=== PATIENT | female | born 1965 | race Caucasian/White ===

== ENCOUNTER 2019-09-05 06:05 | Day surgery (SDC) | payer MEDICARE, MEDICAID ==
[~2019-09-05] VITALS: Ht 157.5 cm; Wt 55.5 kg
[2019-09-05 06:31] VITALS: BP 148/87; PULSE 67; TEMP 97.8
[2019-09-05] MEDS ORDERED: PRINIVIL20 MG PO (06:52)
[2019-09-05] MEDS ORDERED: TIROSINT75 MC1 PO (06:53)
[2019-09-05] MEDS ORDERED: LEXAPRO 10MG10 MG PO (06:54)
[2019-09-05] MEDS ORDERED: LAMICTAL ODT50 MG PO (06:54)
[2019-09-05] MEDS ORDERED: PEPCID 20MG TAB20 MG PO (06:55)
[2019-09-05 07:40] VITALS: BP 117/67; PULSE 97; TEMP 98.3
--- NOTE | 2019-09-05 07:40 | NUR ---
Patient arrives back to [facility] [place] drowsy, denies pain or nausea. Patient ambulates from cart to chair with standby assist and without any complications. Patient monitor applied, vitals stable. Patient's spouse brought to bedside and patient given water, denies wanting any food at this time.
[2019-09-05 07:55] VITALS: BP 125/76; PULSE 98
--- NOTE | 2019-09-05 08:05 | NUR ---
Patient waking up well. Denies pain or nausea. Denies wanting any food at this time. Vitals stable. Waiting for Dr Garcia to see patient to go over results.
[2019-09-05] MEDS ORDERED: PROTONIX 40MG T40 MG PO (08:09)
[2019-09-05 08:10] VITALS: BP 121/76; PULSE 74
--- NOTE | 2019-09-05 08:25 | NUR ---
Dismissal instructions gone over with patient and patient's spouse at this time. Both verbalize understanding and all questions answered.
--- NOTE | 2019-09-05 08:45 | NUR ---
Patient discharged to private vehicle to patient enterance via wheelchair without any complications. Patient and spouse leave thanking staff for services.
== END 2019-09-05 08:45 | disposition home or self-care (01) ==
LOC: SDCO 06:05
DX: K21.0 Gastro-esophageal reflux disease with esophagitis (principal); K59.00 Constipation, unspecified; K29.70 Gastritis, unspecified, without bleeding
CPT/HCPCS: J2250; J2405; J3010; J7030